=== PATIENT | female | born 1990 | race Caucasian/White ===

== ENCOUNTER 2016-11-30 05:06 | Observation (INO) ==
[2016-11-30 05:28] LABS: Bilirubin,Urine Negative (Negative); Blood,Urine Negative (Negative); Clarity,Urine Clear (Clear); Color,Urine Yellow (Yellow); Glucose,Urine (UA) Normal (Normal); Ketones,Urine 40 mg/dL (Negative); Leukocyte Esterase,Urine Negative (Negative); Nitrite,Urine Negative (Negative); PH,Urine 6.5 pH Units (5.0-8.0); Protein,Urine Negative (Neg-Trace); Specific Gravity,Urine 1.009 (1.010-1.025); Urobilinogen,Urine Normal (Normal)
[2016-11-30 06:50] LABS: Amphetamine Screen,Urine Negative ng/mL (Cutoff=1000); Barbiturate Screen,Urine Negative ng/mL (Cutoff=200); Benzodiazepines Screen,Urine Negative ng/mL (Cutoff=200); Cannabinoid Screen,Urine Negative ng/mL (Cutoff = 50); Cocaine Screen,Urine Negative ng/mL (Cutoff= 300); Opiate Screen,Urine Negative ng/mL (Cutoff=300); Phencyclidine Screen,Urine Negative ng/mL (Cutoff=25)
--- NOTE | 2016-11-30 07:07 | OB Labor Progress Note ---
Date of Encounter: 11/30/16 Time of Encounter: 07:05 Labor Progress Note - Plan Plan: patient presented to L and D for a labor eval and anxiety after she found out that her bf cheated on her. Evaluation showed that she was not in labor, UA showed +ketones, patient discharged to follow up outpt, is a regular no show however.
== END 2016-11-30 07:15 | disposition home or self-care (01) ==
LOC: 1NENULAB
PROVIDERS: ADMIT Student in an Organized Health Care Education/Training Program; ATTEND Student in an Organized Health Care Education/Training Program

== ENCOUNTER 2017-03-11 06:00 | Inpatient (IN) ==
[2017-03-11] MEDS ORDERED: Famotidine 20 MG/2 ML VIAL IVP PRN (11:26)
[2017-03-11] MEDS ORDERED: Ondansetron 4 MG/2 ML VIAL IVP PRN (11:26)
[2017-03-11] MEDS ORDERED: Naloxone 0.4 MG/ML INJ IVP PRN (11:26)
[2017-03-11] MEDS ORDERED: miSOPROStol 100 MCG TABLET PO STA (11:28)
[2017-03-11] MEDS ORDERED: *HR* Nalbuphine 20 MG/ML AMPUL IVP PRN (11:28)
[2017-03-11] MEDS ORDERED: Ringers Solution, Lactated 1,000 ML IVC SCH (11:30)
--- NOTE | 2017-03-11 11:33 | OB/GYN History & Physical ---
Date of Encounter: 03/11/17 Time of Encounter: 11:30 Assessment and Plan (1) 39 weeks gestation of Current visit: Yes Status: Acute Admit for IOL (2) Rh negative status during Current visit: Yes Status: Acute Rhogam evaluation after delivery Qualifiers: Trimester: third trimester Qualified Code(s): O09.893 - Supervision of other high risk pregnancies, third trimester History of Present Illness Chief complaint: Schedule IOL for Term with favorable cervix HPI: Ms. Vu is a 26 year old female at 39wod with EDC of 03/18/2017 presents to labor and delivery for scheduled IOL for Dr. Hopkins. Patient has a rahman score of 9, is a multip that is term with a favorable cervix and has transportation issues living more than 45 minutes from the hospital. Patient reports +FM, denies LOF, VB or regular contractions. Induction of labor consent was reviewed and signed by patient. Patient denies any questions or concerns. Will start Cytotec 50mcg PO. Blood type: A Negative, Rubella: Immune, Hep B: Negative, GBS: Negative. Past Med Surg Social Fam HX - Past Medical History Source: patient Medical history: asthma Psychiatric history: no psych history - Past Surgical History Surgical History: other (Laparoscopy and D&C) - Social History Smoking Status: Never smoker Smokeless Tobacco Status: No Alcohol use: none Drug use: none Current living situation: Home - Independent Activity Level: Independent ambulation Recent Out of Country Travel Within the Last 8 Weeks: No Exposure or Possible Exposure to Illness During Travel: No - Family History Father Hx Family Cardiac Disorders: Yes (HTN) Obstetrical History - Pregnancies : 5 Para: 3 Term: 3 : 0 Ab's: 1 Livin Medications and Allergies Cephalexin [Keflex] 500 mg PO QID #48 capsule 01/05/17 [Rx] Ferrous Sulfate [Iron] 325 mg PO DAILY 01/05/17 [History] Allergies No Known Allergies Allergy (Verified 01/05/17 00:18) Review of System OB - Constitutional Constitutional ROS IM: no chills, no fever(s), no headache(s) - Cardiovascular Cardiovascular: no chest pain, no leg edema, no palpitations, no pedal edema, no slow heart rate, no syncope - Respiratory Respiratory: no cough, no dyspnea - Gastrointestinal Gastrointestinal: no abdominal pain, no diarrhea, no heartburn, no nausea, no vomiting - Genitourinary Genitourinary: no abnormal vaginal bleeding, no dysuria, no flank pain, no urinary frequency, no urinary incontinence, no vaginal discharge, no vaginal odor, no vaginal pruritis Exam - Constitutional Constitutional: well developed, well nourished, no acute distress, average body habitus - HEENT HEENT: Normocephaly, Mucus Membranes Moist - Neck Neck exam: full ROM, supple - Lungs Respiratory exam: CTAB - Cardiovascular Cardiovascular exam: RRR, +S1, +S2 - Abdomen Abdomen: Present: bowel sounds normal, gravid, non tender - Extremities Extremities exam: full ROM, normal capillary refill, normal inspection Deep Tendon Reflex Grade: 2+ Normal - Cervix Dilation: 4 Effacement: 70 Station: -1 - Uterus Uterus exam: Present: normal size, normal contour - Anus/Rectum Anus/Rectum: Present: normal perianal skin - Comments Comments: FHR 130 bpm moderate variability +15x15 accels no decels noted. CAt. 1 tracing. no contractions Results All other labs normal. - VTE Reasons for not Prescribing Prophylaxis: Treatment not Indicated - Low risk for VTE
[2017-03-11 12:02] LABS: Basophils # 0.1 K/mcL (0.0-0.2); Basophils % 0.5 %; Eosinophils # 0.1 K/mcL (0.0-0.6); Eosinophils % 0.7 %; Hematocrit 35.5 % (35.3-44.9); Immature Granulocytes % 0.7 % (0-4); Lymphocytes # 1.8 K/mcL (0.6-4.6); Lymphocytes % 13.7 %; Mean Corpuscular HGB Conc 33.8 g/dL (31.6-35.5); Mean Corpuscular Hemoglobin 31.8 pg (28.0-33.3); Mean Corpuscular Volume 94.2 fL (83.0-100.0); Mean Platelet Volume 10.4 fL (9.4-12.4); Monocytes # 0.7 K/mcL (0.0-1.3); Neutrophils # 10.5 K/mcL (1.6-8.9); Platelet Count 239 K/mcL (140-400); Red Blood Count 3.77 M/mcL (3.82-4.97); Segmented Neutrophils % 79.4 %
[2017-03-11] MEDS ORDERED: Ringers Solution, Lactated 500 ML IVC ONE (13:16)
[2017-03-11] MEDS ORDERED: EPHEDrine 50 MG/ML VIAL IVP PRN (13:16)
[2017-03-11] MEDS ORDERED: Epidural Premix (fent/bupiv) 110 ML EP SCH (13:30)
[2017-03-11] MEDS ORDERED: Epidural Premix (fent/bupiv) 110 ML EP ONE (15:28)
--- NOTE | 2017-03-11 16:06 | Anesthesia Evaluation PreOp ---
Date of Encounter: 03/11/17 Time of Encounter: 16:03 - Past History Planned Operation: GEOFFREY Cardiac History: Denies any Significant Hx Pulmonary History: Denies Any Significant HX AFTER SCHOOL COORDINATOR History: Denies Any Significant HX Other Medical History: Other (pt complains of a "headache" for the last 2 years - since her last epidural. She has not seen anyone or received any official diagnosis. She states that she wants the epidural.) Anesthesia History: No Prior Anesthetic Complications, Past Anesthesia : Yes Alcohol Use: none Drug use: none Medications and Allergies Ferrous Sulfate [Iron] 325 mg PO DAILY 01/05/17 [History] Vit Calc,Iron,Folic [ Vitamins] 1 tab PO DAILY 03/11/17 [ History] Allergies No Known Allergies Allergy (Verified 01/05/17 00:18) - Meds/Allergy Pre-op Review Medications Reviewed: Yes Allergies Reviewed: Yes Beta Blockers on Current Med List: No Anesthesia Results - Labs 03/11/17 11:54 Anesthesia Exam Height: 1.52m Weight: 76kg NPO (# of Hours): 6 Pain Scale: 4 Pain Scale Used: Numeric (1 - 10) - HEENT Pupil (Motor): Pupils equal Mallampati: II Teeth: Normal Oral Opening: Greater than 3 - AFTER SCHOOL COORDINATOR LOC: Oriented AFTER SCHOOL COORDINATOR Motor: Normal RUE, Normal LUE, Normal RLE, Normal LLE, Normal Face AFTER SCHOOL COORDINATOR Sensory: Normal: RUE, LUE, RLE, LLE, Face - Cardiac Rhythm: Regular Murmur: None JVD: No Carotid Bruit: No - Pulmonary Breath Sounds: bilateral Clear Respiratory Effort: Symmetrical Anesthesia Assess/Plan ASA Score: 2 Modified Alana Scale for Level of Consciousness: Cooperative, oriented, and tranquil Anesthetic Plan: General (plan b), Regional (plan a) Autologous Blood: Yes Monitoring Plan: Standard Monitors Anes Supervising Prov Stmt: All risks and benefits explained for informed consent. pt states that she wants the epidural despite the risks of increased headaches post delivery.
--- NOTE | 2017-03-11 16:09 | Anesthesia Procedures ---
Date of Encounter: 03/11/17 Time of Encounter: 16:07 Procedures: Anesthesia - Epidural/Spinal Patient ID/Chart reviewed: Yes Patient examined: Yes OB Eval: Gestational age: 39 OB Eval: : 5 OB Eval: Hx Para: 3 OB Eval: Dilated at (cm): 6 OB Eval: Contractions: Non-stressed pattern Consent Obtained: Yes Supplemental Oxygen: None/Room Air Site Prep: Aseptic Technique, Sterile prep and drape, Povidone-Iodine 1% Patient position: upright Local Anesthetic: Lidocaine 1% Amount of Local Anesthetic used: 3 Touhy Needle Gauge: 18 Touhy Needle Depth (cm): 7 Catheter Depth at Skin (cm): 15 Test Dose (1.5% Lido + Epi): Volume given (mls): 5 Test Dose Result: Negative Loading Dose: Other: 10ml of epidural pharm bag premix solution Loading Dose Administered: Thru Catheter Infusion Med: 0.125% Bupivacaine w/ 2 mcg/ml Fentanyl Infusion Rate (mls/hr): [address]: Tegaderm, Tape Interspace Used: L3-L4 Loss of Resistance (TERRA): Yes Blood: No CSF: No Paresthesia: No Procedure: pt tolerated procedure well. no complications. vss. fhr stable.
--- NOTE | 2017-03-11 16:55 | OB Labor Progress Note ---
Date of Encounter: 03/11/17 Time of Encounter: 16:45 Labor Progress Note - Subjective Subjective: Patient is comfortable now after her epidural - Cervix Cervix: 6/80/-2 AROM large amount clear fluid noted - Heart Tones Heart Tones: FHT's 140's reactive - [place]: contractions every 3-5 min inadequate - Plan Plan: We will continue current care the patient has not made significant she is sure in the next 1-2 hours we will discuss Pitocin augmentation.
[2017-03-11] MEDS ORDERED: Oxytocin 20 units/ LR 1000 mL 20 UNIT/1,000 ML BAG IVC ONE (19:25)
--- NOTE | 2017-03-11 19:49 | OB/GYN Procedure Note ---
Delivery - Delivery Date: 03/11/17 Provider: Herman Hopkins Intrapartum events: none Delivery induction: AROM, misoprostol Delivery monitor: external FHT, external uterine, internal uterine Anesthesia: epidural Estimated Blood Loss: 50 - (s) A Infant Delivery Date: 03/11/17 Delivery Time: 19:24 Presentation: vertex Position: BRUCE Route of delivery: Gender: Male Viability: Viable Pounds: 7 Ounces: 9 Weight Gram: 3.43 kg at 1 minute: 9 at 5 mins: 9 Shoulder Dystocia: not encountered Specimens collected: cord blood Placenta: spontaneous Cord: 3 umbilical vessels - Repair Episiotomy: none Laceration Description: Periurethral (right), Labial (left) - Complications Delivery comments: Patient is a 26-year-old 5 para 3013 at 39 and 0 symptoms weeks who was brought in for induction of labor secondary to with favorable cervix. Patient had a recent ultrasound which also showed large for gestational age infant. Patient's cervix is favorable she wanted be induced as soon as possible. Upon arrival to labor and delivery patient was 4 cm,Cytotec by mouth was given and patient was then given an epidural when she was 5-6 and his. She was then artificially ruptured with large amounts of clear fluid noted. Patient started having some deep variable decelerations they when she was examined she was noted to be making cervical change and rapidly became complete she pushed wants delivering a viable male infant in right occiput anterior presentation at 1924. There was no nuchal cord, no meconium, infant was bulb suctioned on the abdomen, Apgars were 9 at 1 minute, 9 at 5 minutes, infant weight was 7 lbs. 9 oz. Placenta was then delivered spontaneously 3 vessel cord , director of learning Dr. Hopkins, anesthesia epidural, estimated blood loss 50 mL patient had a right periurethral and a left labial laceration which had significantly but not bleeding. I felt that it did not need to be reapproximated for Vicryl interrupted sutures were used to bring the skin edges together. No other lacerations were seen.. all needles laps and Sponge counts were correct 3. Patient tolerated delivery well will be observed 2 hours before being taken to visit
[2017-03-11] MEDS ORDERED: Measles/Mumps/Rubella Vacc 0.5 ML VIAL SQ PRN (22:17)
[2017-03-11] MEDS ORDERED: Rho Immune Globulin 1,500 UNIT SYRINGE IM PRN (22:17)
[2017-03-11] MEDS ORDERED: Oxytocin 20 units/ LR 1000 mL 20 UNIT/1,000 ML BAG IVC SCH (22:17)
[2017-03-11] MEDS ORDERED: Acetaminophen 325 MG TABLET PO PRN (22:17)
[2017-03-11] MEDS: Ibuprofen 600 MG TABLET PO PRN (22:55)
[2017-03-11] MEDS ORDERED: Benzocaine/Menthol 56 GM AEROSOL SPRAY TP PRN (23:16)
[2017-03-12 04:47] LABS: Basophils # 0.1 K/mcL (0.0-0.2); Basophils % 0.4 %; Eosinophils # 0.1 K/mcL (0.0-0.6); Eosinophils % 0.4 %; Hematocrit 32.3 % (35.3-44.9); Hemoglobin 10.9 g/dL (11.5-15.4); Immature Granulocytes % 0.7 % (0-4); Lymphocytes # 1.4 K/mcL (0.6-4.6); Lymphocytes % 11.2 %; Mean Corpuscular HGB Conc 33.7 g/dL (31.6-35.5); Mean Corpuscular Hemoglobin 31.5 pg (28.0-33.3); Mean Corpuscular Volume 93.4 fL (83.0-100.0); Mean Platelet Volume 10.7 fL (9.4-12.4); Monocytes # 0.6 K/mcL (0.0-1.3); Monocytes % 4.6 %; Platelet Count 220 K/mcL (140-400); Red Blood Count 3.46 M/mcL (3.82-4.97); Red Cell Distribution Width 13.7 % (11.5-14.5); Segmented Neutrophils % 82.7 %
--- NOTE | 2017-03-12 07:49 | Discharge Summary ---
Date of Encounter: 03/12/17 Time of Encounter: 07:47 - Discharge Diagnosis (1) Status post vaginal delivery Priority: Primary Status: Acute Comments: Pt meeting milestones. Lochia light. Ambulating and voiding freely. Tolerating regular diet. She reports some perineal discomfort this am. No other complaints. (2) Rh negative status during Priority: Secondary Status: Acute Comments: Will give Rhogam prior to discharge if indicated. Qualifiers: Trimester: third trimester Qualified Code(s): O09.893 - Supervision of other high risk pregnancies, third trimester - Discharge Medications Prescriptions: Ibuprofen [Motrin] 600 mg PO Q6HR PRN #60 tablet PRN Reason: Cramping Docusate [Colace] 100 mg PO BID #60 capsule Home Medications: Vit Calc,Iron,Folic [ Vitamins] 1 tab PO DAILY 03/11/17 [ History] Acetaminophen [Tylenol] 650 mg PO Q6HR PRN #0 tablet 03/12/17 [Rx] Benzocaine/Menthol [place] [Dermoplast [place]] 1 appl TP QID PRN #0 aerosol [Rx] Docusate [Colace] 100 mg PO BID #60 capsule 03/12/17 [Rx] Ibuprofen [Motrin] 600 mg PO Q6HR PRN #60 tablet 03/12/17 [Rx] Allergies/Adverse Reactions: Allergies No Known Allergies Allergy (Verified 01/05/17 00:18) Data Procedures and tests throughout hospitalization: Laboratory Tests 03/11/17 03/12/17 11:54 03:44 WBC 13.3 H 12.1 H RBC 3.77 L 3.46 L Hgb 12.0 10.9 L Hct 35.5 32.3 L MCV 94.2 93.4 MCH 31.8 31.5 MCHC 33.8 33.7 RDW 14.0 13.7 Plt Count 239 220 MPV 10.4 10.7 Immature Gran % 0.7 0.7 Seg Neutrophils % 79.4 82.7 Lymphocytes % 13.7 11.2 Monocytes % 5.0 4.6 Eosinophils % 0.7 0.4 Basophils % 0.5 0.4 Neutrophils # 10.5 H 10.0 H Lymphocytes # 1.8 1.4 Monocytes # 0.7 0.6 Eosinophils # 0.1 0.1 Basophils # 0.1 0.1 Labs on day of discharge: Labs from last 24 hours 03/12/17 03/11/17 03:44 11:54 WBC 12.1 H 13.3 H RBC 3.46 L 3.77 L Hgb 10.9 L 12.0 Hct 32.3 L 35.5 MCV 93.4 94.2 MCH 31.5 31.8 MCHC 33.7 33.8 RDW 13.7 14.0 Plt Count 220 239 MPV 10.7 10.4 Immature Gran % 0.7 0.7 Seg Neutrophils % 82.7 79.4 Lymphocytes % 11.2 13.7 Monocytes % 4.6 5.0 Eosinophils % 0.4 0.7 Basophils % 0.4 0.5 Neutrophils # 10.0 H 10.5 H Lymphocytes # 1.4 1.8 Monocytes # 0.6 0.7 Eosinophils # 0.1 0.1 Basophils # 0.1 0.1 Date of admission: 03/11/17 10:38 Primary care physician: PCP NO Consults: 03/11/17 22:17 Consult to Deportation Examiner [CONS] Routine Comment: Vaginal delivery, consult needed Discharging clinician: Nicole Jeronimo Anticipated date of discharge: 03/12/17 - Patient Status Disposition: Home, Self-Care Condition: Good Functional capacity at discharge: independent ambulation Overall status at discharge: patient is back to baseline - Discharge Instructions Follow Up With: KESHIA,PCP [Primary Care Provider] - Herman Hopkins, [Partnered Physician] - - Diet and Activity Activity: increase activity as tolerated Diet: regular diet Hospital Course Reason for admission: induction of labor Delivery: Episiotomy: none Laceration: other (periurethral and labial) Other procedures: none complications: none Discharge diagnosis: IUP at term delivered [place] baby: male Hospital course: - Delivery Date: 03/11/17 Provider: Herman Hopkins Intrapartum events: none Delivery induction: AROM, misoprostol Delivery monitor: external FHT, external uterine, internal uterine Anesthesia: epidural Estimated Blood Loss: 50 - (s) A Delivery Date: 03/11/17 Infant Delivery Time: 19:24 Presentation: vertex Position: BRUCE Route of delivery: Gender: Male Viability: Viable Pounds: 7 Ounces: 9 Weight Gram: 3.43 kg at 1 minute: 9 at 5 mins: 9 Shoulder Dystocia: not encountered Specimens collected: cord blood Placenta: spontaneous Cord: 3 umbilical vessels - Repair Episiotomy: none Laceration Description: Periurethral (right), Labial (left) Time Attestation: Total time spent providing and/or coordinating discharge services: Time Spent: Less than 30 minutes Exam - Constitutional Vitals: Temp Pulse Resp BP Pulse Ox 97.6 F 74 16 113/79 96 03/12/17 03:30 03/12/17 03:30 03/12/17 03:30 03/12/17 03:30 03/12/17 03:30 General appearance IM: A&O X 3 - Respiratory Respiratory exam: Present: CTAB - Cardiovascular Cardiovascular exam IM: Present: RRR, +S1, +S2 - GI/Abdominal GI/Abdominal exam IM: soft - Rectal Rectal exam: deferred - External exam: normal external exam Uterine Tone: Firm Uterus Position: 1 Finger Below Umbilicus - Extremities Exam Extremities exam IM: Present: pedal edema (mild edema bilaterally) - Neurological Exam Neurological exam: normal gait, oriented X3 - Psychiatric Additional comments: reports good mood
[2017-03-12] MEDS: Ibuprofen 600 MG TABLET PO PRN ×2 (07:53→13:35)
[2017-03-12 09:00] VITALS: BP 101/69
[2017-03-12] MEDS ORDERED: Prenatal Vit/FA 1 EACH TABLET PO SCH (09:00)
[2017-03-12] MEDS ORDERED: NON-FORMULARY MEDICATION 1 EACH EACH (Prenatal Vit Calc,Iron,Folic [Prenatal Vitamins] 1 T PO SCH (09:00)
== END 2017-03-12 20:45 | disposition home or self-care (01) | DRG 560 ==
LOC: 1NENULAB 10:12 → 1NENUOBS 22:00
PROVIDERS: ADMIT Obstetrics & Gynecology; ATTEND Obstetrics & Gynecology

== ENCOUNTER 2021-02-04 20:21 | Inpatient (IN) ==
[2021-02-04] MEDS ORDERED: *HR* LORazepam 2 MG/ML VIAL IM PRN (22:27)
[2021-02-04] MEDS ORDERED: *HR* LORazepam 1 MG TABLET PO PRN (22:27)
[2021-02-04] MEDS ORDERED: Ibuprofen 400 MG TABLET PO PRN (22:27)
[2021-02-04] MEDS ORDERED: Mag Hydrox/Al Hydrox/Simeth 30 ML UDC PO PRN (22:27)
[2021-02-04] MEDS ORDERED: haloperidoL 5 MG TABLET PO PRN (22:27)
[2021-02-04] MEDS ORDERED: Haloperidol Lactate 5 MG/ML VIAL IM PRN (22:27)
[2021-02-04] MEDS ORDERED: MOM Conc 10 ML UD.LIQ PO PRN (22:27)
[2021-02-04] MEDS: hydrOXYzine pamoate 25 MG CAPSULE PO PRN (23:38)
[2021-02-04] MEDS: traZODone 50 MG TABLET PO PRN (23:38)
[2021-02-05] MEDS ORDERED: cloNIDine HCL 0.1 MG TABLET PO PRN (11:46)
[2021-02-05] MEDS: hydrOXYzine pamoate 25 MG CAPSULE PO PRN (16:15)
[2021-02-05] MEDS: traZODone 50 MG TABLET PO PRN (22:08)
[2021-02-05] MEDS: cloNIDine HCL 0.1 MG TABLET PO SCH (22:15)
[2021-02-06] MEDS: FLUoxetine HCl 10 MG CAPSULE PO SCH (14:45)
[2021-02-06] MEDS: cloNIDine HCL 0.1 MG TABLET PO SCH (21:47)
[2021-02-07 09:34] VITALS: BP 93/68
[2021-02-07] MEDS: FLUoxetine HCl 10 MG CAPSULE PO SCH (09:34)
== END 2021-02-07 12:25 | disposition home or self-care (01) | DRG 751 ==
LOC: EMEROOARM 20:21 → 1ANU 22:08
PROVIDERS: ADMIT Psychiatry & Neurology Psychiatry; ATTEND Psychiatry & Neurology Psychiatry